=== PATIENT | male | born 1945 | race Hispanic/Latino ===

== ENCOUNTER 2017-05-15 14:30 | Inpatient (IN) | payer OTHER ==
[~2017-05-15] VITALS: Ht 180.3 cm; Wt 109.3 kg
[2017-05-15 17:15] VITALS: BP 150/63
[2017-05-15] MEDS ORDERED: LISI1TAB9 PO (17:19)
[2017-05-15] MEDS ORDERED: NAPR-1023 PO (17:25)
[2017-05-15] MEDS ORDERED: ASPI-1181 PO (17:25)
[2017-05-15 17:35] LABS: APPEARANCE,URINE Clear (CLEAR); BILIRUBIN,URINE Negative (NEGATIVE); COLOR,URINE Dark Yellow (YELLOW); GLUCOSE, URINE (UA) Negative (NEGATIVE); KETONES,URINE Negative (NEGATIVE); LEUKOCYTE ESTERASE ,URINE Negative (NEGATIVE); NITRATE,URINE Negative (NEGATIVE); OCCULT BLOOD,URINE Negative (NEGATIVE); PH,URINE 6.5 (5.0-8.0); PROTEIN,URINE Negative (NEGATIVE)
[2017-05-15] MEDS ORDERED: PYRI60TA PO (17:35)
[2017-05-15] MEDS ORDERED: ALLO100T PO (17:35)
[2017-05-15 17:43] LABS: INR 0.99 (0.85-1.15); PARTIAL THROMBOPLASTIN TIME 27.5 SEC (26.3-35.5); PROTHROMBIN TIME 10.4 SEC (9.6-11.6)
[2017-05-16] VITALS (35 sets, daily range): BP systolic 102–200; BP diastolic 52–110
[2017-05-16] MEDS ORDERED: CEFAZOLIN 3GM /D5W 100ML 100 ML IV SCH (06:00)
[2017-05-16] MEDS ORDERED: TRANEXAMIC ACID 1000MG/10ML IV ONE (07:00)
[2017-05-16] MEDS ORDERED: CEFAZOLIN SODIUM 1 GM VIAL ONE (07:00)
[2017-05-16] MEDS ORDERED: LACTATED RINGERS 1000ML 1,000 ML IV ONE (07:21)
[2017-05-16] MEDS ORDERED: VITAL JOINT PO (07:38)
[2017-05-16] MEDS ORDERED: ROSU10TA35 PO (07:38)
[2017-05-16] MEDS ORDERED: [UNRECOGNIZED DRUG - OTHER] PO (07:38)
[2017-05-16] MEDS ORDERED: PANT40TA25 PO (07:38)
[2017-05-16] MEDS: CEFAZOLIN SODIUM 1 GM VIAL ONE ×2 (07:42→09:10)
[2017-05-16] MEDS ORDERED: BUPIVACAINE/EPI/PF 0.25% 30ML VIAL IJ ONE (07:59)
[2017-05-16] MEDS ORDERED: FENTANYL CITRATE PF 50 MCG/1 ML 2ML VIAL ONE (08:26)
[2017-05-16] MEDS ORDERED: PROPOFOL 10 MG/ML 20ML VIAL IV ONE ×2 (08:27→10:40)
[2017-05-16] MEDS ORDERED: MIDAZOLAM HCL 1 MG/ML 2ML VIAL ONE (08:27)
[2017-05-16] MEDS ORDERED: ROPIVACAINE 0.5% 5MG/ML 30ML IJ ONE (08:30)
[2017-05-16] MEDS ORDERED: EPHEDRINE SULFATE 50 MG/ML AMPULE ONE (08:51)
[2017-05-16] MEDS: ACETAMINOPHEN 325 MG TAB PO SCH ×3 (10:45→20:40)
[2017-05-16] MEDS ORDERED: DiphenhydrAMINE HCL 50 MG/ML VIAL IVP PRN (10:45)
[2017-05-16] MEDS ORDERED: OXYCODONE HCL 5 MG TAB PO PRN ×2 (10:45)
[2017-05-16] MEDS ORDERED: DIPHENHYDRAMINE HCL 25 MG CAPSULE PO PRN (10:45)
[2017-05-16] MEDS ORDERED: CALCIUM CARBONATE 500 MG TABLET PO PRN (10:45)
[2017-05-16] MEDS ORDERED: PROMETHAZINE HCL 25 MG/ML 1ML AMPULE IM PRN (10:45)
[2017-05-16] MEDS ORDERED: LIDOCAINE HCL-MPF 1% 2ML VIAL IVP PRN (10:45)
[2017-05-16] MEDS ORDERED: POTASSIUM CHLORIDE 20 MEQ ERTAB PO PRN (10:45)
[2017-05-16] MEDS ORDERED: FERROUS FUMARATE 324 MG TABLET PO PRN (10:45)
[2017-05-16] MEDS ORDERED: POTASSIUM CHLORIDE 10% ELIXIR 20 MEQ/15 ML UDCUP PO PRN (10:45)
[2017-05-16] MEDS ORDERED: TEMAZEPAM 15 MG CAPSULE PO PRN (10:45)
[2017-05-16] MEDS ORDERED: POTASSIUM CHLORIDE 20MEQ/100ML 100 ML IV PRN (10:45)
[2017-05-16] MEDS ORDERED: TRAMADOL HCL 50 MG TABLET PO PRN (10:45)
[2017-05-16] MEDS ORDERED: NEOSTIGMINE METHYLSULFATE 1MG/ML IV ONE (11:07)
[2017-05-16] MEDS ORDERED: GLYCOPYRROLATE 0.2 MG/ML 5 ML VIAL ONE (11:07)
[2017-05-16] MEDS ORDERED: ROCURONIUM BROMIDE 10MG/1ML 5ML VL ONE (11:07)
[2017-05-16] MEDS ORDERED: LABETALOL HCL 5 MG/ML 20ML VIAL IV ONE (11:14)
[2017-05-16] MEDS: PSYLLIUM SEED 1 EACH PACKET PO SCH (12:00)
[2017-05-16] MEDS ORDERED: HYDRALAZINE HCL 20 MG/ML VIAL ONE (12:08)
[2017-05-16 12:31] LABS: ABG HCO3 32.7 mmol/L (21.0-28.0); ABG OXYGEN SATURATION 94.2 % (95.0-99.0); ABG PCO2 > 150 mmHg (35-48)
[2017-05-16 13:45] LABS: ABG BASE EXCESS -0.3 mmol/L (-2.0-3.0); ABG HCO3 25.3 mmol/L (21.0-28.0); ABG OXYGEN SATURATION 99.6 % (95.0-99.0); ABG PCO2 45 mmHg (35-48)
[2017-05-16 14:33] LABS: ABG BASE EXCESS -0.9 mmol/L (-2.0-3.0); ABG HCO3 23.2 mmol/L (21.0-28.0); ABG OXYGEN SATURATION 96.2 % (95.0-99.0); ABG PCO2 37 mmHg (35-48)
[2017-05-16] MEDS: SODIUM CHLORIDE 0.9% 1000ML 1,000 ML IV SCH ×2 (15:30→20:44)
[2017-05-16] MEDS: KETOROLAC TROMETHAMINE 15MG/ML IV PRN ×2 (15:32→23:22)
[2017-05-16] MEDS: PYRIDOSTIGMINE BROMIDE 60 MG TABLET PO SCH ×2 (17:00→20:44)
[2017-05-16] MEDS: CEFAZOLIN 3GM /D5W 100ML 100 ML IV SCH ×2 (17:42→23:22)
[2017-05-16] MEDS: CELECOXIB 200 MG CAP PO SCH (20:43)
[2017-05-16] MEDS: ASPIRIN 325 MG TABLET PO SCH (20:43)
[2017-05-16] MEDS: PREGABALIN 25 MG CAP PO SCH (20:43)
[2017-05-17] VITALS: BP 154/71
[2017-05-17 04:00] VITALS: BP 147/71
[2017-05-17] MEDS: ACETAMINOPHEN 325 MG TAB PO SCH ×3 (04:09→16:14)
[2017-05-17] MEDS: SODIUM CHLORIDE 0.9% 1000ML 1,000 ML IV SCH (04:09)
[2017-05-17 05:34] LABS: CREATININE 1.6 mg/dL (0.5-1.5); HEMATOCRIT 34.1 % (42-54); MEAN CORPUSCULAR HGB CONC 35.1 g/dL (32.0-36.0); MEAN CORPUSCULAR VOLUME 88.4 fL (79-99); PLATELET COUNT (AUTO) 151 K/uL (130-400); RED BLOOD CELL COUNT(AUTO) 3.85 MIL/uL (4.50-6.20); RED CELL DISTRIBUTION WIDTH 14.8 % (11.0-15.5); WHITE BLOOD COUNT (AUTO) 10.3 K/uL (4.8-10.8)
[2017-05-17 08:02] VITALS: BP 155/82
[2017-05-17] MEDS ORDERED: TAMSULOSIN HCL 0.4 MG CAP.ER.24H PO SCH (09:00)
[2017-05-17] MEDS ORDERED: POLYETHYLENE GLYCOL 3350 17 GM POWD.PACK PO SCH (09:00)
[2017-05-17] MEDS: PYRIDOSTIGMINE BROMIDE 60 MG TABLET PO SCH ×3 (09:00→17:00)
[2017-05-17] MEDS ORDERED: PANTOPRAZOLE SODIUM 40 MG TABLET.DR PO SCH (09:00)
[2017-05-17] MEDS ORDERED: ALLOPURINOL 100 MG TABLET PO SCH (09:00)
[2017-05-17] MEDS: KETOROLAC TROMETHAMINE 15MG/ML IV PRN (09:27)
[2017-05-17] MEDS: CELECOXIB 200 MG CAP PO SCH (09:51)
[2017-05-17] MEDS: ASPIRIN 325 MG TABLET PO SCH (09:51)
[2017-05-17] MEDS: PREGABALIN 25 MG CAP PO SCH (09:51)
[2017-05-17 11:29] VITALS: BP 100/53
[2017-05-17] MEDS: PSYLLIUM SEED 1 EACH PACKET PO SCH (12:00)
[2017-05-17 16:26] VITALS: BP 102/52
[2017-05-17] MEDS ORDERED: HYDR-309 PO (18:46)
[2017-05-17] MEDS ORDERED: ASPI-1012 PO (18:46)
[2017-05-17] MEDS ORDERED: Rosuvastatin Calcium 10 MG PO SCH (21:00)
[2017-05-18] MEDS ORDERED: BISACODYL 5 MG TABLET.DR PO PRN (10:45)
[2017-05-19] MEDS ORDERED: BISACODYL 10 MG SUPP.RECT RC PRN (10:45)
== END 2017-05-17 20:05 | disposition home health service (06) | DRG 470 ==
LOC: EDSTATUS 14:30 → DAHIP 05-16 06:35 → 4AH 05-16 15:22
PROVIDERS: ADMIT Orthopaedic Surgery; ATTEND Orthopaedic Surgery
PROC: 0SRD0J9 Replacement of Left Knee Joint with Synthetic Substitute, Cemented, Open Approach (ICD-10-PCS; principal; 2017-05-16 08:20)
DX: M17.12 Unilateral primary osteoarthritis, left knee (principal); G70.00 Myasthenia gravis without (acute) exacerbation; I10 Essential (primary) hypertension; E78.5 Hyperlipidemia, unspecified; M10.9 Gout, unspecified; G89.29 Other chronic pain; E78.00 Pure hypercholesterolemia, unspecified; K21.9 Gastro-esophageal reflux disease without esophagitis; Z82.49 Family history of ischemic heart disease and other diseases of the circulatory system; Z80.9 Family history of malignant neoplasm, unspecified; Z91.013 Allergy to seafood; Z90.49 Acquired absence of other specified parts of digestive tract; Z93.1 Gastrostomy status; Z28.21 Immunization not carried out because of patient refusal
CPT/HCPCS: 36415; 36600; 80048; 81003; 82330; 82435; 82803; 82947; 83605; 84132; 84295; 85018; 85027; 85610; 85730; 88304; 88311; 93005; 94002; 94660; A4218; C1713; J0360; J0690; J1885; J2250; J2704; J2710; J2795; J3010; J3490; J7120

== ENCOUNTER 2018-01-21 09:38 | Observation (INO) | payer OTHER ==
[2018-01-18 16:14] VITALS: BP 151/68
[2018-01-18 16:20] LABS: BASOPHILS % (AUTO) 0.5 % (0.0-5.0); EOSINOPHILS % (AUTO) 3.4 % (0.0-8.0); HEMATOCRIT 39.7 % (42-54); MEAN CORPUSCULAR HEMOGLOBIN 29.7 pg (27.0-33.0); MEAN CORPUSCULAR HGB CONC 32.4 g/dL (32.0-36.0); MEAN CORPUSCULAR VOLUME 91.4 fL (79-99); MONOCYTES % (AUTO) 9.6 % (3.0-13.0); NEUTROPHILS % (AUTO) 55.5 % (40.0-77.0); NUCLEATED RED BLOOD CELLS 0.1 % (0.0-0.19); PLATELET COUNT (AUTO) 171 K/uL (130-400); RED BLOOD CELL COUNT(AUTO) 4.35 MIL/uL (4.50-6.20); RED CELL DISTRIBUTION WIDTH 14.5 % (11.0-15.5)
[2018-01-18 16:23] LABS: APPEARANCE,URINE Clear (CLEAR); BILIRUBIN,URINE Negative (NEGATIVE); COLOR,URINE Dark Yellow (YELLOW); GLUCOSE, URINE (UA) Negative (NEGATIVE); KETONES,URINE Trace mg/dL (NEGATIVE); LEUKOCYTE ESTERASE ,URINE Negative (NEGATIVE); NITRATE,URINE Negative (NEGATIVE); OCCULT BLOOD,URINE Negative (NEGATIVE); PROTEIN,URINE Negative (NEGATIVE)
[2018-01-18 16:33] LABS: CREATININE 1.5 mg/dL (0.5-1.5); POTASSIUM 4.4 mmol/L (3.5-5.1)
[2018-01-18 16:34] LABS: INR 0.98 (0.85-1.15); PARTIAL THROMBOPLASTIN TIME 29.4 SEC (26.3-35.5); PROTHROMBIN TIME 10.3 SEC (9.6-11.6)
[~2018-01-21] VITALS: Ht 180.3 cm; Wt 112.1 kg
[2018-01-21] VITALS (27 sets, daily range): BP systolic 122–153; BP diastolic 63–86
[~2018-01-21 09:38] MED LIST: AEC81 PO; ALLO100T PO; CEFAZOLIN 3GM /D5W 100ML 100 ML IV SCH; LISI1TAB9 PO; PANT40TA25 PO; PYRI60TA2 PO; ROSU10TA27 PO
[2018-01-21] MEDS ORDERED: SODIUM CHLORIDE 0.9% 1000ML 0 ML IV ONE (10:26)
[2018-01-21] MEDS ORDERED: LACTATED RINGERS 1000ML 1,000 ML IV ONE (10:38)
[2018-01-21] MEDS: CEFAZOLIN SODIUM 1 GM VIAL ONE ×2 (10:41→13:33)
[2018-01-21] MEDS ORDERED: ACETAMINOPHEN EXTRA STRENGTH 500 MG TABLET ONE (11:02)
[2018-01-21] MEDS ORDERED: CELECOXIB 200 MG CAP ONE (11:02)
[2018-01-21] MEDS ORDERED: OXYCODONE HCL 10 MG TAB.SR.12H PO ONE (11:02)
[2018-01-21] MEDS ORDERED: TRANEXAMIC ACID 1000MG/10ML IV ONE (11:42)
[2018-01-21] MEDS ORDERED: BUPIVACAINE/EPI/PF 0.25% 50 ML VIAL ONE (11:42)
[2018-01-21] MEDS ORDERED: CEFAZOLIN SODIUM 1 GM VIAL ONE (11:48)
[2018-01-21] MEDS ORDERED: MIDAZOLAM HCL 1 MG/ML 2ML VIAL ONE (12:45)
[2018-01-21] MEDS ORDERED: ROPIVACAINE 0.5% 5MG/ML 30ML IJ ONE (12:46)
[2018-01-21] MEDS ORDERED: FENTANYL CITRATE PF 50 MCG/1 ML 2ML VIAL ONE ×4 (12:48→14:43)
[2018-01-21] MEDS ORDERED: PROPOFOL 10 MG/ML 20ML VIAL IV ONE (12:48)
[2018-01-21] MEDS ORDERED: ROCURONIUM 10MG/1ML SYR 10 MG/ML ML ONE (12:50)
[2018-01-21] MEDS ORDERED: GLYCOPYRROLATE 1 MG/5 ML SYRINGE ONE (12:52)
[2018-01-21] MEDS ORDERED: DEXAMETHASONE SOD PHOSPHATE 10MG/ML 1ML VIAL ONE (13:08)
[2018-01-21] MEDS ORDERED: EPHEDRINE SULFATE 50 MG/ML AMPULE ONE (13:11)
[2018-01-21] MEDS ORDERED: PHENYLEPHRINE HCL 10 MG/ML 1ML VIAL IV ONE (13:59)
[2018-01-21] MEDS ORDERED: POTASSIUM CHLORIDE 20MEQ/100ML 100 ML IV PRN (15:15)
[2018-01-21] MEDS ORDERED: POTASSIUM CHLORIDE 20 MEQ ERTAB PO PRN (15:15)
[2018-01-21] MEDS ORDERED: OXYCODONE HCL 5 MG TAB PO PRN (15:15)
[2018-01-21] MEDS ORDERED: TEMAZEPAM 15 MG CAPSULE PO PRN (15:15)
[2018-01-21] MEDS ORDERED: POTASSIUM CHLORIDE 10% ELIXIR 20 MEQ/15 ML UDCUP PO PRN (15:15)
[2018-01-21] MEDS ORDERED: CALCIUM CARBONATE 500 MG TABLET PO PRN (15:15)
[2018-01-21] MEDS ORDERED: LIDOCAINE HCL-MPF 1% 2ML VIAL IVP PRN (15:15)
[2018-01-21] MEDS: ACETAMINOPHEN EXTRA STRENGTH 500 MG TABLET PO SCH ×2 (15:15→22:53)
[2018-01-21] MEDS ORDERED: DiphenhydrAMINE HCL 50 MG/ML VIAL IVP PRN (15:15)
[2018-01-21] MEDS ORDERED: FERROUS FUMARATE 324 MG TABLET PO PRN (15:15)
[2018-01-21] MEDS ORDERED: TRAMADOL HCL 50 MG TABLET PO PRN (15:15)
[2018-01-21] MEDS ORDERED: ONDANSETRON HCL 4 MG/2 ML VIAL IVP PRN (15:15)
[2018-01-21] MEDS ORDERED: MEPERIDINE-PF 25 MG/ML SYG ONE (16:23)
[2018-01-21] MEDS: SODIUM CHLORIDE 0.9% 1000ML 1,000 ML IV SCH (17:08)
[2018-01-21] MEDS: PREGABALIN 25 MG CAP PO SCH (19:59)
[2018-01-21] MEDS: CELECOXIB 200 MG CAP PO SCH (19:59)
[2018-01-21] MEDS: ATORVASTATIN CALCIUM 20 MG TABLET PO SCH (19:59)
[2018-01-21] MEDS: ASPIRIN 325 MG TABLET PO SCH (19:59)
[2018-01-21] MEDS: PYRIDOSTIGMINE BROMIDE 60 MG TABLET PO SCH (20:03)
[2018-01-21] MEDS: OXYCODONE HCL 5 MG TAB PO PRN ×2 (20:03→23:52)
[2018-01-21] MEDS: CEFAZOLIN 3GM /D5W 100ML 100 ML IV SCH (20:35)
[2018-01-22] MEDS: SODIUM CHLORIDE 0.9% 1000ML 1,000 ML IV SCH ×2 (01:02→11:02)
[2018-01-22 03:50] VITALS: BP 152/73
[2018-01-22] MEDS: CEFAZOLIN 3GM /D5W 100ML 100 ML IV SCH (03:59)
[2018-01-22 04:37] LABS: HEMATOCRIT 36.3 % (42-54); MEAN CORPUSCULAR HEMOGLOBIN 30.2 pg (27.0-33.0); MEAN CORPUSCULAR HGB CONC 33.3 g/dL (32.0-36.0); MEAN CORPUSCULAR VOLUME 90.7 fL (79-99); PLATELET COUNT (AUTO) 146 K/uL (130-400); RED CELL DISTRIBUTION WIDTH 14.6 % (11.0-15.5); WHITE BLOOD COUNT (AUTO) 9.5 K/uL (4.8-10.8)
[2018-01-22 04:50] LABS: CREATININE 1.4 mg/dL (0.5-1.5); POTASSIUM 4.5 mmol/L (3.5-5.1)
[2018-01-22 08:10] VITALS: BP 131/72
[2018-01-22] MEDS: PREGABALIN 25 MG CAP PO SCH ×2 (08:11→19:41)
[2018-01-22] MEDS: CELECOXIB 200 MG CAP PO SCH ×2 (08:12→19:41)
[2018-01-22] MEDS: ACETAMINOPHEN EXTRA STRENGTH 500 MG TABLET PO SCH ×2 (08:13→15:25)
[2018-01-22] MEDS: PYRIDOSTIGMINE BROMIDE 60 MG TABLET PO SCH ×4 (08:14→19:41)
[2018-01-22] MEDS: ASPIRIN 325 MG TABLET PO SCH ×2 (08:16→19:41)
[2018-01-22] MEDS ORDERED: PANTOPRAZOLE SODIUM 40 MG TABLET.DR PO SCH (09:00)
[2018-01-22] MEDS ORDERED: ALLOPURINOL 100 MG TABLET PO SCH (09:00)
[2018-01-22] MEDS ORDERED: LISINOPRIL 10 MG TABLET PO SCH (09:00)
[2018-01-22] MEDS ORDERED: TAMSULOSIN HCL 0.4 MG CAP.ER.24H PO SCH (09:00)
[2018-01-22] MEDS ORDERED: POLYETHYLENE GLYCOL 3350 17 GM POWD.PACK PO SCH (09:00)
[2018-01-22] MEDS ORDERED: HYDROCHLOROTHIAZIDE 25 MG TABLET PO SCH (09:00)
[2018-01-22 11:23] VITALS: BP 105/57
[2018-01-22 16:17] VITALS: BP 96/47
[2018-01-22 19:40] VITALS: BP 108/54
[2018-01-22] MEDS: ATORVASTATIN CALCIUM 20 MG TABLET PO SCH (19:41)
[2018-01-22] MEDS ORDERED: HYDR-4457 PO (19:53)
[2018-01-22] MEDS ORDERED: ASPI-1012 PO (19:53)
[2018-01-24] MEDS ORDERED: BISACODYL 10 MG SUPP.RECT RC PRN (15:15)
== END 2018-01-22 21:30 | disposition home health service (06) ==
LOC: DAH 09:38 → 4AH 09:39 → DAH 09:39
PROVIDERS: ADMIT Orthopaedic Surgery; ATTEND Orthopaedic Surgery
DX: M17.11 Unilateral primary osteoarthritis, right knee (principal); I10 Essential (primary) hypertension; M10.9 Gout, unspecified; K21.9 Gastro-esophageal reflux disease without esophagitis; E78.5 Hyperlipidemia, unspecified
CPT/HCPCS: 27447; 36415 ×2; 80048 ×2; 81003; 85025; 85027; 85610; 85730; 88305; 88311; 96365; 96366; 97116 ×2; 97161; A4600; A4649 ×6; A4930 ×2; A9272; C1763; C1776; G0378 ×36; G8978; G8979; G8980; G8981; G8982; G8983; J0690 ×4; J1100; J2175; J2250; J2370; J2704; J2795; J3010 ×4; J3490 ×4; J7120 ×2; J7030

== ENCOUNTER → 2021-09-20 | Outpatient (CLI) | payer OTHER ==
[~2021-09-20] MED LIST changes: +CARAL PO; -CEFAZOLIN 3GM /D5W 100ML 100 ML IV SCH; +LISI1TAB49 PO; -LISI1TAB9 PO; +PANT40TA PO; -PANT40TA25 PO; +PANT40TA54 PO; -ROSU10TA27 PO; +ROSU10TA28 PO
== END | disposition home or self-care (01) ==
LOC: RAH 10:47
PROVIDERS: ATTEND Family Medicine
DX: I08.8 Other rheumatic multiple valve diseases (principal); R05.9 Cough, unspecified
CPT/HCPCS: 93306

== ENCOUNTER → 2023-07-12 | Outpatient (CLI) | payer OTHER ==
[~2023-07-12] MED LIST changes: -AEC81 PO; -CARAL PO; -LISI1TAB49 PO; +LOSA25TA41 PO; +OMEG100014 PO; -PANT40TA PO; -ROSU10TA28 PO; +ROSU10TA72 PO; +SUCR1TAB2 PO; +VITAMIN A PO; +VITAMIN B12 PO; +VITAMIN D3 PO
== END | disposition home or self-care (01) ==
LOC: RAH 09:18
PROVIDERS: ATTEND Family Medicine
DX: Z13.6 Encounter for screening for cardiovascular disorders (principal)
CPT/HCPCS: 76775